=== PATIENT | female | born 1960 | race Caucasian/White ===

== ENCOUNTER 2019-04-12 06:33 | Observation (INO) | payer MEDICAID ==
[~2019-04-12] VITALS: Ht 160 cm; Wt 58.6 kg
[2019-04-12] MEDS ORDERED: NORVASC 10MG10 MG PO (06:42)
[2019-04-12] MEDS ORDERED: PAXIL 20MG20 MG PO (06:43)
[2019-04-12] MEDS ORDERED: APRESOLINE 25MG25 MG PO (06:43)
[2019-04-12 09:00] LABS: BASO # 0.1 (0.0-0.2); BASO % 0.5 % (0.0-2.0); EOS # 0.2 (0.0-0.7); EOS % 2.2 % (0-4.0); GRAN # 7.1 (1.4-6.5); GRAN % 77.2 % (42.2-75.2); HEMATOCRIT 42.3 % (37.0-47.0); HEMOGLOBIN 13.7 g/dl (12.5-16.0); LYMPH # 1.2 (1.2-3.4); LYMPH % 12.4 % (20.0-51.0); MEAN CELL VOLUME 91 fl (80.0-100.0); MEAN CORPUSCULAR HEMOGLOBIN 29 pg (27.0-31.0); MEAN CORPUSCULAR HGB CONC 32 g/dl (33.0-37.0); MEAN PLATELET VOLUME 9.5 fl (7.4-10.4); MONO # 0.7 (0.1-0.6); MONO % 7.5 % (1.7-9.3); PLATELET COUNT 306 K/mm3 (130-400); RED BLOOD COUNT 4.67 M/mm3 (4.10-5.30); REDCELL DISTRIBUTION WIDTH-CV 13.6 % (11.5-14.5)
[2019-04-12 09:16] LABS: ALANINE AMINOTRANSFERASE 18 U/L (9-52); ALBUMIN 4.3 gm/dL (3.5-5.0); ALKALINE PHOSPHATASE 159 U/L (50-136); ANION GAP 7 mmol/L (7-16); AST,SGOT 27 U/L (15-37); BILIRUBIN,TOTAL 0.5 mg/dL (0.0-1.0); BLOOD UREA NITROGEN 24 mg/dL (7-17); C-REACTIVE PROTEIN 0.8 mg/dL (0.0-0.9); CALCIUM 9.8 mg/dL (8.4-10.2); CARBON DIOXIDE 32 mmol/L (22-30); CHLORIDE 99 mmol/L (98-107); CREATININE, serum 0.57 (0.52-1.25); GLUCOSE 99 mg/dL (74-106); LIPASE 63 U/L (23-300); POTASSIUM 4.2 mmol/L (3.4-5.0); SODIUM 138 mmol/L (137-145); TOTAL PROTEIN 7.2 gm/dL (6.4-8.2)
[2019-04-12 09:30] LABS: TROPONIN-I < 0.012 ng/mL (0.000-0.035)
[2019-04-12 10:53] LABS: COLLECTION METHOD CLEAN CATCH
[2019-04-12 11:10] LABS: MUCOUS Present /lpf; PH 5 (5-8); SQUAMOUS EPITHELIAL 0-2 /hpf; URINE APPEARANCE Hazy; URINE BACTERIA Rare /hpf; URINE BILIRUBIN Negative (NEGATIVE); URINE BLOOD Negative (NEGATIVE); URINE COLOR Yellow; URINE GLUCOSE Negative (NEGATIVE); URINE KETONE Negative (NEGATIVE); URINE LEUKOCYTE ESTERASE Trace (NEGATIVE); URINE NITRATE Negative (NEGATIVE); URINE PROTEIN(semi-quant) Negative (NEGATIVE); URINE RBC None Seen /hpf; URINE UROBILINOGEN Negative (NEGATIVE)
--- NOTE | 2019-04-12 14:30 | NUR ---
Patient arrived to the floor at this time. Patient is resting in bed. States that her pain is the thing that is bothering her the most. She is A&Ox4. Her is at the bedside.
[2019-04-12] MEDS ORDERED: IPRATROPIUM BROM3 M1 IH (14:32)
[2019-04-12] MEDS ORDERED: PROVENTIL0.09 MG/A1 IH (14:33)
[2019-04-12] MEDS ORDERED: COMBIRESP IH (14:34)
[2019-04-12] MEDS ORDERED: ALBUTEROL0.83 MG/ML IH (14:42)
[2019-04-12] MEDS ORDERED: FLOVENT 110MCG7.9 GM IH (14:44)
[2019-04-12] MEDS ORDERED: RT ADVAIR 228 DISKUS IH (14:46)
--- NOTE | 2019-04-12 15:05 | NUR ---
Patient stated that her pain was at a 10/10. PRN pain medication was provided.
[2019-04-12 16:28] VITALS: BP 116/73; PULSE 86; TEMP 98.3
[2019-04-12 16:31] VITALS: BP 116/83; PULSE 91; TEMP 98.3
--- NOTE | 2019-04-12 16:45 | NUR ---
Med rec and admission assessment completed at bedside by Express unit nurse BARRY Mcfadden.
--- NOTE | 2019-04-12 17:27 | NUR ---
Patient has had a good day since she arrived. She has been in pain since she arrived with minimal relief on PRN Morphine. Will continue to monitor and reassess pain. Currently rated at a 10/10 PRN morphine was given.
--- NOTE | 2019-04-12 18:19 | NUR ---
Patient reported anxiety that she said was making her pain and trouble breathing work. Dr. Lipscomb was called to request PRN anxiety medication. He prescribed a one time dose of 0.5 Ativan. Patient is aware that the dose she was given is a one time dose this evening. No further needs were expressed from the patient. Call light is within reach.
[2019-04-12 19:32] VITALS: BP 111/71; PULSE 88; TEMP 98.4
--- NOTE | 2019-04-12 20:05 | NUR ---
Patient assessed at this time. Alert and oriented x 4, and able to make needs known. Complains of level 10 pain to back, described as squeezing/vise. Given PRN Morphine as requested for pain. Double lumen PICC to RUE. Both lumens flushed. Dressing to area is CDI. Reports SOB and dyspnea on exertion. Continues on oxygen at 2 L/min via NC. LS CTA. Respirations even and unlabored at rest. HRR. Telemetry in place: sinus. Capillary refill less than 3 seconds. Non-tenting skin turgor. BSAx4. Abdomen soft and non-tender. No edema. Patient anxious. Reports Ativan helped very little. Resting in bed with call light within reach.
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
--- NOTE | 2019-04-13 01:10 | NUR ---
Patient complaining of level 10 pain to back. Given PRN [place] per orders.
--- NOTE | 2019-04-13 01:50 | NUR ---
Patient continues to have pain to back, rated as a 10. Given 2nd dose of [place] at this time. Also complaining of anxiety. Given PRN Ativan as requested. Assisted to bathroom and back to bed. Voices no further questions, needs, or concerns. Resting in bed with call light within reach.
[2019-04-13 02:49] VITALS: BP 100/58; PULSE 85; TEMP 98.5
--- NOTE | 2019-04-13 04:50 | NUR ---
Patient continues to have anxiety that someone is watching her from outside, saying that she is seeing shadows through the blinds. Allowed blinds to be open for short time so that she could see we were on the 3rd floor and no one was looking in her window. Called shortly afterwards to have blinds put back down, stating that she'd rather not see the person's face if someone was out there. Reports she feels like Ativan is helping some, as she is not as anxious as she usually is. Also reports some decrease in pain. Continues on oxygen at 2 L/min via NC. Has been awake most of the night. Call light is within reach.
--- NOTE | 2019-04-13 07:08 | NUR ---
Report given to day shift nurse.
[2019-04-13 08:00] VITALS: BP 132/53; PULSE 88; TEMP 98.2
--- NOTE | 2019-04-13 08:00 | NUR ---
Assessment complete. Patient is lying in bed. She stated her anxiety was making her feel like she could not breath and that her pain was back. PRN Ativan was administered for her. Her vitals were stable upon assessment. PICC line flushed and belem well. Her call light is within reach.
[2019-04-13 08:12] LABS: BASO % 0.1 % (0.0-2.0); GRAN # 5.8 (1.4-6.5); GRAN % 83.3 % (42.2-75.2); HEMATOCRIT 37.8 % (37.0-47.0); HEMOGLOBIN 12.4 g/dl (12.5-16.0); LYMPH # 0.8 (1.2-3.4); MEAN CELL VOLUME 90 fl (80.0-100.0); MEAN CORPUSCULAR HEMOGLOBIN 30 pg (27.0-31.0); MEAN CORPUSCULAR HGB CONC 33 g/dl (33.0-37.0); MEAN PLATELET VOLUME 9.8 fl (7.4-10.4); MONO # 0.3 (0.1-0.6); MONO % 4.5 % (1.7-9.3); PLATELET COUNT 316 K/mm3 (130-400); RED BLOOD COUNT 4.21 M/mm3 (4.10-5.30); REDCELL DISTRIBUTION WIDTH-CV 13.2 % (11.5-14.5)
[2019-04-13 08:23] LABS: CALCIUM 9.5 mg/dL (8.4-10.2); CREATININE, serum 0.72 (0.52-1.25); POTASSIUM 4.7 mmol/L (3.4-5.0)
[2019-04-13] MEDS ORDERED: ZITHROMAX 250M250 MG PO (09:20)
[2019-04-13] MEDS ORDERED: LEXAPRO 10MG10 MG PO (09:21)
[2019-04-13] MEDS ORDERED: NORCO 325 MG-7.1 TAB PO (09:22)
[2019-04-13] MEDS ORDERED: PREDNISONE20 MG PO (09:22)
--- NOTE | 2019-04-13 09:54 | NUR ---
PRN ativan administered at this time per while rounding on the patient, as she stated her anxiety was so bad she felt as though something was squeezing her and that she could not breath.
--- NOTE | 2019-04-13 12:28 | NUR ---
Went to reassess patients pain after given a whole tab at 1110, she stated her pain was still at a 10. I offered her a half tab per the order and she refused it and wanted to wait the 4 hours so she can get a whole tab later.
[2019-04-13 13:14] VITALS: BP 118/63; PULSE 101; TEMP 98.2
--- NOTE | 2019-04-13 16:05 | NUR ---
Clocksmith attended clinical rounds with the team then met with patient to discuss discharge planning. Patient states she just moved to [place] last week from [place] to be with her fiance, Shadi Hills. Patient has [place] Medicaid and plans to reapply for Medicaid once she has lived in [place] for three months. Patient does not have primary care set up but is agreeable to have appointment set up at [facility]. Patient does not have Advance Directives. Patient uses walker at home and reports she uses home oxygen although she states she just uses a tank that was her fiance's family member's old tank. SW reported this to Hospitalist who ordered exercise ox. Per RT, patient qualifies for 2 liters of oxygen. CAROLEE met with patient and presented DME Choice form. Patient selected [facility]] and CAROLEE placed form on chart. CAROLEE faxed clinical information, order, and Financial Assistance Application to [facility] and contacted Neisha who advised oxygen would be delivered to patient's room this afternoon. CAROLEE contacted [facility] to set up appointment for patient on 04/19/2019. CAROLEE provided appointment date, time, and address to patient. Patient to discharge home today.
--- NOTE | 2019-04-13 16:48 | NUR ---
PATIENT ESCORTED OUT TO FRONT ENTRANCE AT THIS TIME. DISCHARGE INSTRUCTIONS WERE DISCUSSED.
[2019-04-14] MEDS ORDERED: FLEXERIL5 MG PO (13:59)
== END 2019-04-13 16:50 | disposition home or self-care (01) ==
LOC: COL.ER 06:33 → MEDICAL 11:29
PROVIDERS: Emergency Medicine; Nurse Practitioner Family; ADMIT Student in an Organized Health Care Education/Training Program
DX: J44.1 Chronic obstructive pulmonary disease with (acute) exacerbation (principal); J96.20 Acute and chronic respiratory failure, unspecified whether with hypoxia or hypercapnia; F41.9 Anxiety disorder, unspecified; G89.29 Other chronic pain; M54.9 Dorsalgia, unspecified; Z99.81 Dependence on supplemental oxygen; Z90.49 Acquired absence of other specified parts of digestive tract; G04.90 Encephalitis and encephalomyelitis, unspecified; Z87.891 Personal history of nicotine dependence
CPT/HCPCS: C1751; G0378; J2270; J2405; J2920; J2930

== ENCOUNTER 2019-04-14 10:10 | Emergency (ER) | payer MEDICAID ==
[~2019-04-14] VITALS: Ht 160 cm; Wt 61.8 kg
[~2019-04-14 10:10] MED LIST: ALBUTEROL0.83 MG/ML IH; APRESOLINE 25MG25 MG PO; COMBIRESP IH; FLOVENT 110MCG7.9 GM IH; IPRATROPIUM BROM3 M1 IH; LEXAPRO 10MG10 MG PO; NORCO 325 MG-7.1 TAB PO; NORVASC 10MG10 MG PO; PAXIL 20MG20 MG PO; PREDNISONE20 MG PO; PROVENTIL0.09 MG/A1 IH; RT ADVAIR 228 DISKUS IH; ZITHROMAX 250M250 MG PO
[2019-04-14 10:15] VITALS: TEMP 98
[2019-04-14 12:30] LABS: HEMOGLOBIN 13.7 g/dl (12.5-16.0); MEAN CELL VOLUME 90 fl (80.0-100.0); MEAN CORPUSCULAR HEMOGLOBIN 30 pg (27.0-31.0); MEAN CORPUSCULAR HGB CONC 33 g/dl (33.0-37.0); MEAN PLATELET VOLUME 9.7 fl (7.4-10.4); PLATELET COUNT 339 K/mm3 (130-400); RED BLOOD COUNT 4.57 M/mm3 (4.10-5.30); REDCELL DISTRIBUTION WIDTH-CV 13.5 % (11.5-14.5)
[2019-04-14 12:46] LABS: LYMPHOCYTE 12 % (20.0-51.0); NEUTROPHILS 86 % (42.0-75.2); PLATELET ESTIMATE NORMAL (NORMAL)
[2019-04-14 12:58] LABS: ALANINE AMINOTRANSFERASE 21 U/L (9-52); ALBUMIN 4.2 gm/dL (3.5-5.0); ALKALINE PHOSPHATASE 146 U/L (50-136); ANION GAP 8 mmol/L (7-16); AST,SGOT 26 U/L (15-37); BILIRUBIN,TOTAL 0.2 mg/dL (0.0-1.0); BLOOD UREA NITROGEN 30 mg/dL (7-17); CALCIUM 9.3 mg/dL (8.4-10.2); CARBON DIOXIDE 30 mmol/L (22-30); CHLORIDE 99 mmol/L (98-107); CREATININE, serum 0.47 (0.52-1.25); GLUCOSE 129 mg/dL (74-106); POTASSIUM 4.4 mmol/L (3.4-5.0); SODIUM 137 mmol/L (137-145); TOTAL PROTEIN 7.1 gm/dL (6.4-8.2)
[2019-04-14 13:06] LABS: C-REACTIVE PROTEIN < 0.5 mg/dL (0.0-0.9)
[2019-04-14] MEDS ORDERED: FLEXERIL5 MG PO (13:59)
[2019-04-14 14:38] VITALS: BP 142/96; PULSE 84
== END 2019-04-14 14:45 | disposition home or self-care (01) ==
LOC: COL.ER 10:10
PROVIDERS: Emergency Medicine
DX: J44.9 Chronic obstructive pulmonary disease, unspecified (principal); G89.29 Other chronic pain; M54.6 Pain in thoracic spine; Z79.51 Long term (current) use of inhaled steroids
CPT/HCPCS: J1170; J1885; J2060

== ENCOUNTER 2019-04-16 14:51 | Emergency (ER) | payer MEDICAID ==
[~2019-04-16] VITALS: Ht 162.6 cm; Wt 61.8 kg
[~2019-04-16 14:51] MED LIST changes: +FLEXERIL5 MG PO
[2019-04-16 15:00] VITALS: TEMP 98.1
[2019-04-16 17:50] VITALS: BP 115/72; PULSE 82
== END 2019-04-16 17:48 | disposition home or self-care (01) ==
LOC: COL.ER 14:51
DX: S22.050A Wedge compression fracture of T5-T6 vertebra, initial encounter for closed fracture (principal); Z79.51 Long term (current) use of inhaled steroids; X58.XXXA Exposure to other specified factors, initial encounter
CPT/HCPCS: J1885

== ENCOUNTER 2019-04-20 13:25 | Emergency (ER) | payer MEDICAID ==
[~2019-04-20] VITALS: Ht 162.6 cm; Wt 61.8 kg
[2019-04-20 13:31] VITALS: BP 141/95
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
[2019-04-20] MEDS ORDERED: FLEXERIL 1010 MG/TAB PO (16:20)
[2019-04-20 16:45] VITALS: PULSE 107; TEMP 98.3
== END 2019-04-20 16:45 | disposition home or self-care (01) ==
LOC: COL.ER 13:25
DX: F41.9 Anxiety disorder, unspecified (principal); G89.29 Other chronic pain; J44.9 Chronic obstructive pulmonary disease, unspecified; Z79.51 Long term (current) use of inhaled steroids
CPT/HCPCS: J1885

== ENCOUNTER 2019-04-21 14:01 | Emergency (ER) | payer MEDICAID ==
[~2019-04-21] VITALS: Ht 162.6 cm; Wt 61.8 kg
[~2019-04-21 14:01] MED LIST changes: +FLEXERIL 1010 MG/TAB PO
[2019-04-21 14:09] VITALS: TEMP 97.9
[2019-04-21 16:32] LABS: BASO % 0.5 % (0.0-2.0); EOS # 0.4 (0.0-0.7); GRAN # 3.6 (1.4-6.5); GRAN % 55.9 % (42.2-75.2); HEMATOCRIT 37.1 % (37.0-47.0); HEMOGLOBIN 11.8 g/dl (12.5-16.0); LYMPH # 1.8 (1.2-3.4); LYMPH % 28.1 % (20.0-51.0); MEAN CELL VOLUME 94 fl (80.0-100.0); MEAN CORPUSCULAR HEMOGLOBIN 30 pg (27.0-31.0); MEAN CORPUSCULAR HGB CONC 32 g/dl (33.0-37.0); MEAN PLATELET VOLUME 11.3 fl (7.4-10.4); MONO # 0.6 (0.1-0.6); MONO % 8.9 % (1.7-9.3); PLATELET COUNT 69 K/mm3 (130-400); RED BLOOD COUNT 3.97 M/mm3 (4.10-5.30); REDCELL DISTRIBUTION WIDTH-CV 13.9 % (11.5-14.5)
--- NOTE | 2019-04-21 16:32 | NUR ---
An APS reports was made, report number # [id number].
[2019-04-21 16:54] LABS: ALBUMIN 4.3 gm/dL (3.5-5.0); BILIRUBIN,TOTAL 0.8 mg/dL (0.0-1.0); C-REACTIVE PROTEIN 0.6 mg/dL (0.0-0.9); CALCIUM 9.3 mg/dL (8.4-10.2); CREATININE, serum 0.41 (0.52-1.25); POTASSIUM 4.1 mmol/L (3.4-5.0); TOTAL PROTEIN 6.9 gm/dL (6.4-8.2)
[2019-04-21 17:03] LABS: TROPONIN-I 0.016 ng/mL (0.000-0.035)
[2019-04-21 17:52] VITALS: BP 112/80; PULSE 80
== END 2019-04-21 18:00 | disposition home or self-care (01) ==
LOC: COL.ER 14:01
PROVIDERS: Emergency Medicine
DX: J44.9 Chronic obstructive pulmonary disease, unspecified (principal); R07.89 Other chest pain; M54.9 Dorsalgia, unspecified; G89.29 Other chronic pain; I10 Essential (primary) hypertension; F41.9 Anxiety disorder, unspecified; F32.9 Major depressive disorder, single episode, unspecified; Z87.891 Personal history of nicotine dependence; Z79.51 Long term (current) use of inhaled steroids
CPT/HCPCS: J1885

== ENCOUNTER 2019-04-23 08:44 | Emergency (ER) | payer MEDICAID ==
[~2019-04-23] VITALS: Ht 162.6 cm; Wt 61.8 kg
[2019-04-23 08:48] VITALS: TEMP 97.8
[2019-04-23 10:29] LABS: BASO % 0.2 % (0.0-2.0); EOS % 0.1 % (0-4.0); GRAN # 7.9 (1.4-6.5); GRAN % 90.9 % (42.2-75.2); HEMATOCRIT 40.6 % (37.0-47.0); HEMOGLOBIN 13.1 g/dl (12.5-16.0); LYMPH # 0.6 (1.2-3.4); LYMPH % 6.8 % (20.0-51.0); MEAN CELL VOLUME 90 fl (80.0-100.0); MEAN CORPUSCULAR HEMOGLOBIN 29 pg (27.0-31.0); MEAN CORPUSCULAR HGB CONC 32 g/dl (33.0-37.0); MEAN PLATELET VOLUME 9.1 fl (7.4-10.4); MONO # 0.2 (0.1-0.6); MONO % 1.7 % (1.7-9.3); RED BLOOD COUNT 4.49 M/mm3 (4.10-5.30); REDCELL DISTRIBUTION WIDTH-CV 13.9 % (11.5-14.5)
[2019-04-23 10:30] LABS: ALANINE AMINOTRANSFERASE 31 U/L (9-52); ALBUMIN 4.3 gm/dL (3.5-5.0); ALKALINE PHOSPHATASE 168 U/L (50-136); ANION GAP 9 mmol/L (7-16); AST,SGOT 20 U/L (15-37); BILIRUBIN,TOTAL 0.5 mg/dL (0.0-1.0); BLOOD UREA NITROGEN 19 mg/dL (7-17); CALCIUM 9.6 mg/dL (8.4-10.2); CARBON DIOXIDE 28 mmol/L (22-30); CHLORIDE 101 mmol/L (98-107); CREATININE, serum 0.45 (0.52-1.25); GLUCOSE 135 mg/dL (74-106); POTASSIUM 3.5 mmol/L (3.4-5.0); SODIUM 138 mmol/L (137-145); TOTAL PROTEIN 7.1 gm/dL (6.4-8.2)
[2019-04-23 10:32] LABS: C-REACTIVE PROTEIN < 0.5 mg/dL (0.0-0.9)
[2019-04-23 10:34] LABS: PLATELET COUNT 345 K/mm3 (130-400)
[2019-04-23 10:52] LABS: TROPONIN-I < 0.012 ng/mL (0.000-0.035)
[2019-04-23 11:05] LABS: ERYTHROCYTE SEDIMENTATION RATE 2 mm/hr (0-30)
[2019-04-23 12:35] VITALS: BP 109/76; PULSE 99
--- NOTE | 2019-04-23 15:15 | NUR ---
SW consulted for patient frequent visits. SW met with patient and in room. Patient gave verbal to talk in front of spouse. Patient reports that she is in pain and initially stated she was out of pain medications. Patient reports that she has not complied with seeing a PCP at [facility]. Patient claimed that she was unable to see the dr because she did not have any ID and they told her she would have to reschedule the appointment. stated that they ordered a birthcertificate that should be here tomorrow or wednesday in order to obtain and ID to be able to see the dr. SW question client on how she was able to obtain her RXS from the pharmacy without ID. Patient then stated that she does not know what she is going to do for pain and states she only has flexeril left and had to take two prior to coming to the ER. Patient indicated that she is also taking IBU and Tylenol as supplements. SW detailed patient recieved the following 04/13 HYDROcodone 28 tabs, 04/14 in er .5 Hydromorphine (2) and 60 ML Toradol. 04/16 Hydrocodone 5/325, 60 /2 ML Toradol, 10 MG Flexeril, 1 Tab [place], 04/20 5/325 Hydrocodone, Toradol, and [place], on 04/21 20 Tabs of Flexeril, 60MG Toradol, [place] Tab 5/325 and home with 7.5/325 Hydrocodone, and medications give today. Patient reports that she was out of the initial prescription in two and a half days. SW educated client that she will need to follow the medications as prescribed and do not over use the flexeril that she has remaining. SW educated patient on getting in with a primary care. Educated client on tracking of norcotics. Patient reports that she understood. Client reports thats she was having a hard time breathing. SW educated that it could be due to the additional medications in her system. SW prompted client on use or abuse, client denies having a substance use issues and stated that this pain only happened a few months ago. Nothing follows/
== END 2019-04-23 12:35 | disposition home or self-care (01) ==
LOC: COL.ER 08:44
PROVIDERS: Physician Assistant
DX: F41.9 Anxiety disorder, unspecified (principal); R06.00 Dyspnea, unspecified; I10 Essential (primary) hypertension; J44.9 Chronic obstructive pulmonary disease, unspecified; Z87.891 Personal history of nicotine dependence; Z79.51 Long term (current) use of inhaled steroids
CPT/HCPCS: J1885; J2060; Q9967

== ENCOUNTER 2019-04-28 11:55 | Emergency (ER) | payer MEDICAID ==
[~2019-04-28] VITALS: Ht 162.6 cm; Wt 61.8 kg
[2019-04-28 12:08] VITALS: TEMP 98.5
[2019-04-28] MEDS ORDERED: PREDNISONE20 MG PO (12:28)
[2019-04-28 13:00] VITALS: BP 119/81; PULSE 82
== END 2019-04-28 13:07 | disposition home or self-care (01) ==
LOC: COL.ER 11:55
DX: R06.00 Dyspnea, unspecified (principal); J44.9 Chronic obstructive pulmonary disease, unspecified; Z90.89 Acquired absence of other organs; Z87.891 Personal history of nicotine dependence; Z79.51 Long term (current) use of inhaled steroids
CPT/HCPCS: J7512

== ENCOUNTER 2019-04-30 08:50 | Emergency (ER) | payer MEDICAID ==
[~2019-04-30] VITALS: Ht 162.6 cm; Wt 61.8 kg
[2019-04-30 08:55] VITALS: TEMP 97
[2019-04-30 09:54] LABS: BASO % 0.3 % (0.0-2.0); EOS # 0.1 (0.0-0.7); EOS % 0.6 % (0-4.0); GRAN # 7.3 (1.4-6.5); GRAN % 74.5 % (42.2-75.2); HEMOGLOBIN 12.7 g/dl (12.5-16.0); LYMPH # 1.8 (1.2-3.4); LYMPH % 17.7 % (20.0-51.0); MEAN CELL VOLUME 91 fl (80.0-100.0); MEAN CORPUSCULAR HEMOGLOBIN 30 pg (27.0-31.0); MEAN CORPUSCULAR HGB CONC 33 g/dl (33.0-37.0); MEAN PLATELET VOLUME 8.8 fl (7.4-10.4); MONO # 0.7 (0.1-0.6); MONO % 6.7 % (1.7-9.3); PLATELET COUNT 307 K/mm3 (130-400); RED BLOOD COUNT 4.27 M/mm3 (4.10-5.30); REDCELL DISTRIBUTION WIDTH-CV 14.5 % (11.5-14.5)
[2019-04-30 10:14] LABS: ALANINE AMINOTRANSFERASE 29 U/L (9-52); ALBUMIN 4.5 gm/dL (3.5-5.0); ALKALINE PHOSPHATASE 167 U/L (50-136); ANION GAP 8 mmol/L (7-16); AST,SGOT 35 U/L (15-37); BILIRUBIN,TOTAL 0.5 mg/dL (0.0-1.0); BLOOD UREA NITROGEN 14 mg/dL (7-17); CARBON DIOXIDE 32 mmol/L (22-30); CHLORIDE 100 mmol/L (98-107); CREATININE, serum 0.41 (0.52-1.25); GLUCOSE 103 mg/dL (74-106); POTASSIUM 3.4 mmol/L (3.4-5.0); SODIUM 140 mmol/L (137-145); TOTAL PROTEIN 7.3 gm/dL (6.4-8.2)
[2019-04-30 10:26] LABS: TROPONIN-I < 0.012 ng/mL (0.000-0.035)
[2019-04-30] MEDS ORDERED: FLEXERIL 1010 MG/TAB PO (10:38)
[2019-04-30 10:55] VITALS: BP 136/85; PULSE 98
== END 2019-04-30 10:55 | disposition home or self-care (01) ==
LOC: COL.ER 08:50
PROVIDERS: Emergency Medicine
DX: R06.02 Shortness of breath (principal); J44.9 Chronic obstructive pulmonary disease, unspecified; F17.210 Nicotine dependence, cigarettes, uncomplicated; Z79.51 Long term (current) use of inhaled steroids
CPT/HCPCS: J1100; J1630; J1885; J7040

== ENCOUNTER 2019-05-02 10:26 | Emergency (ER) | payer MEDICAID ==
[~2019-05-02] VITALS: Ht 162.6 cm; Wt 61.8 kg
[2019-05-02 10:54] VITALS: BP 111/71; TEMP 98.4
[2019-05-02 12:30] VITALS: PULSE 98
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
== END 2019-05-02 13:00 | disposition home or self-care (01) ==
LOC: COL.ER 10:26
DX: F41.9 Anxiety disorder, unspecified (principal); G89.29 Other chronic pain; J44.9 Chronic obstructive pulmonary disease, unspecified; Z87.891 Personal history of nicotine dependence; Z90.89 Acquired absence of other organs; Z79.51 Long term (current) use of inhaled steroids

== ENCOUNTER 2019-05-03 10:04 | Emergency (ER) | payer MEDICAID ==
[~2019-05-03] VITALS: Ht 162.6 cm; Wt 61.8 kg
--- NOTE | 2019-05-03 10:26 | NUR ---
APS report filed this day, 05/03. Report # [id number]
--- NOTE | 2019-05-03 10:30 | NUR ---
OPTICS ENGINEER student attempted to contact Rhoda from [facility] about the patient and the APS report, left message.
[2019-05-03 12:14] VITALS: BP 88/58; PULSE 99; TEMP 98.4
--- NOTE | 2019-05-03 13:42 | NUR ---
The patient presented to the ED this day and declined a dialysis social worker consult.
== END 2019-05-03 12:35 | disposition home or self-care (01) ==
LOC: COL.ER 10:04
DX: F41.9 Anxiety disorder, unspecified (principal); J44.9 Chronic obstructive pulmonary disease, unspecified; I50.9 Heart failure, unspecified; G89.29 Other chronic pain; M54.9 Dorsalgia, unspecified; Z87.891 Personal history of nicotine dependence; Z79.51 Long term (current) use of inhaled steroids

== ENCOUNTER 2019-05-04 08:06 | Emergency (ER) | payer MEDICAID ==
[~2019-05-04] VITALS: Ht 162.6 cm; Wt 61.8 kg
[2019-05-04 08:23] VITALS: BP 153/80; PULSE 124; TEMP 98.3
--- NOTE | 2019-05-04 13:33 | NUR ---
BETTIE tyson responded to a social service director consult for the patient. BETTIE tyson signed the patient up for the [facility] Team to receive any assistance needed. BETTIE tyson collaborated the above information with Fleet Maintenance Manager and Field Handyman.
== END 2019-05-04 10:05 | disposition home or self-care (01) ==
LOC: COL.ER 08:06
DX: F41.9 Anxiety disorder, unspecified (principal); G89.29 Other chronic pain; M54.9 Dorsalgia, unspecified; I10 Essential (primary) hypertension; J44.9 Chronic obstructive pulmonary disease, unspecified; F17.210 Nicotine dependence, cigarettes, uncomplicated; Z79.51 Long term (current) use of inhaled steroids

== ENCOUNTER 2019-05-11 09:26 | Emergency (ER) | payer MEDICAID ==
[~2019-05-11] VITALS: Ht 162.6 cm; Wt 61.8 kg
[2019-05-11 09:26] VITALS: TEMP 98.5
[2019-05-11] MEDS ORDERED: OMNICEF 300MG300 MG PO (09:36)
[2019-05-11] MEDS ORDERED: PREDNISONE20 MG PO (09:36)
[2019-05-11] MEDS ORDERED: DOXYCYCLINE 10100 MG PO (09:36)
[2019-05-11 11:43] LABS: BASO # 0.1 (0.0-0.2); BASO % 0.3 % (0.0-2.0); EOS # 0.5 (0.0-0.7); EOS % 3.5 % (0-4.0); GRAN # 12.5 (1.4-6.5); GRAN % 82.7 % (42.2-75.2); HEMOGLOBIN 11.1 g/dl (12.5-16.0); LYMPH # 0.6 (1.2-3.4); LYMPH % 4.2 % (20.0-51.0); MEAN CELL VOLUME 90 fl (80.0-100.0); MEAN CORPUSCULAR HEMOGLOBIN 30 pg (27.0-31.0); MEAN CORPUSCULAR HGB CONC 33 g/dl (33.0-37.0); MEAN PLATELET VOLUME 9.2 fl (7.4-10.4); MONO # 1.3 (0.1-0.6); MONO % 8.4 % (1.7-9.3); PLATELET COUNT 307 K/mm3 (130-400); RED BLOOD COUNT 3.74 M/mm3 (4.10-5.30); REDCELL DISTRIBUTION WIDTH-CV 14.6 % (11.5-14.5)
[2019-05-11 11:52] LABS: BILIRUBIN,TOTAL 0.6 mg/dL (0.0-1.0); CALCIUM 8.4 mg/dL (8.4-10.2); CREATININE, serum 0.4 (0.52-1.25); POTASSIUM 3.3 mmol/L (3.4-5.0); TOTAL PROTEIN 5.7 gm/dL (6.4-8.2)
[2019-05-11 12:09] LABS: HEMATOCRIT 33.6 % (37.0-47.0)
[2019-05-11 12:30] LABS: TROPONIN-I < 0.012 ng/mL (0.000-0.035)
[2019-05-11 12:31] LABS: ARTERIAL BLD GAS O2 SATURATION 93.4 % (92-100); ARTERIAL BLD GAS TCO2 CT 32.5; ARTERIAL BLOOD GAS BASE EXCESS 4.9 (-2-2); ARTERIAL BLOOD GAS HCO3 30.9 meq/L (22-26); ARTERIAL BLOOD GAS PCO2 52.4 mmHg (35-45); ARTERIAL BLOOD GAS PO2 64.6 mmHg (80-100); ARTERIAL BLOOD GAS pH 7.39 (7.35-7.45)
[2019-05-11 14:03] VITALS: BP 125/72; PULSE 117
--- NOTE | 2019-05-11 16:11 | NUR ---
CAROLEE filed an APS report # [id number].
== END 2019-05-11 14:03 | disposition home or self-care (01) ==
LOC: COL.ER 09:26
PROVIDERS: Emergency Medicine
DX: J44.1 Chronic obstructive pulmonary disease with (acute) exacerbation (principal); J18.9 Pneumonia, unspecified organism; F17.210 Nicotine dependence, cigarettes, uncomplicated; I10 Essential (primary) hypertension; F41.9 Anxiety disorder, unspecified; Z79.51 Long term (current) use of inhaled steroids; Z90.89 Acquired absence of other organs
CPT/HCPCS: A4216; J0696; J2930; J3475; J7030

== ENCOUNTER 2019-05-12 15:50 | Emergency (ER) | payer MEDICAID ==
[~2019-05-12] VITALS: Ht 162.6 cm; Wt 61.8 kg
[~2019-05-12 15:50] MED LIST changes: +DOXYCYCLINE 10100 MG PO; +OMNICEF 300MG300 MG PO
[2019-05-12 16:50] VITALS: BP 132/83
[2019-05-12 18:45] VITALS: PULSE 102; TEMP 98.4
== END 2019-05-12 18:50 | disposition home or self-care (01) ==
LOC: COL.ER 15:50
DX: J18.9 Pneumonia, unspecified organism (principal)

== ENCOUNTER 2019-05-16 10:45 | Emergency (ER) | payer MEDICAID ==
[~2019-05-16] VITALS: Ht 162.6 cm; Wt 61.8 kg
[2019-05-16 11:55] VITALS: BP 129/64; TEMP 97.5
[2019-05-16] MEDS ORDERED: VISTARIL100 MG PO (14:25)
[2019-05-16 14:32] VITALS: PULSE 95
== END 2019-05-16 14:35 | disposition home or self-care (01) ==
LOC: COL.ER 10:45
DX: F41.9 Anxiety disorder, unspecified (principal); R06.00 Dyspnea, unspecified; J44.9 Chronic obstructive pulmonary disease, unspecified; Z90.89 Acquired absence of other organs; Z87.891 Personal history of nicotine dependence; Z79.51 Long term (current) use of inhaled steroids

== ENCOUNTER 2019-05-21 07:27 | Emergency (ER) | payer SELFPAY ==
[~2019-05-21] VITALS: Ht 162.6 cm; Wt 61.8 kg
[~2019-05-21 07:27] MED LIST changes: +VISTARIL100 MG PO
[2019-05-21 07:42] VITALS: TEMP 98.3
[2019-05-21] MEDS ORDERED: MEDROL 4MG DOSPA4 MG PO (10:03)
[2019-05-21] MEDS ORDERED: LEVAQUIN 750MG750 M1 PO (10:03)
[2019-05-21 10:51] VITALS: BP 115/85; PULSE 85
== END 2019-05-21 10:51 | disposition home or self-care (01) ==
LOC: COL.ER 07:27
DX: J44.1 Chronic obstructive pulmonary disease with (acute) exacerbation (principal); J18.9 Pneumonia, unspecified organism; F41.9 Anxiety disorder, unspecified; Z79.51 Long term (current) use of inhaled steroids
CPT/HCPCS: J7512

== ENCOUNTER 2019-05-23 12:54 | Emergency (ER) | payer SELFPAY ==
[~2019-05-23] VITALS: Ht 162.6 cm; Wt 61.8 kg
[~2019-05-23 12:54] MED LIST changes: +LEVAQUIN 750MG750 M1 PO; +MEDROL 4MG DOSPA4 MG PO
[2019-05-23 12:58] VITALS: BP 127/94; TEMP 97.9
[2019-05-23 14:25] VITALS: PULSE 98
--- NOTE | 2019-05-23 15:31 | NUR ---
CONSOLE MANAGER student contacted the patient to assist with obtaining her marriage certificate from [place], [place]. The patient is to write a letter containing her name, her 's name, the month and year of the marriage with a self-addressed stamp envelope, and $1.50 money order. The address [facility] Marriage License [address], [place] [address]. The patient was agreeable to this. There are no additional needs at this time. [facility] Marriage License p# . There are no additional needs at this time.
== END 2019-05-23 14:25 | disposition home or self-care (01) ==
LOC: COL.ER 12:54
DX: J44.9 Chronic obstructive pulmonary disease, unspecified (principal); Z87.891 Personal history of nicotine dependence; Z79.51 Long term (current) use of inhaled steroids

== ENCOUNTER 2019-05-28 15:58 | Emergency (ER) | payer SELFPAY ==
[~2019-05-28] VITALS: Ht 162.6 cm; Wt 61.8 kg
[2019-05-28 16:08] VITALS: TEMP 97.2
[2019-05-28 18:12] LABS: C-REACTIVE PROTEIN 0.7 mg/dL (0.0-0.9); CALCIUM 9.7 mg/dL (8.4-10.2); CREATININE, serum 0.4 (0.52-1.25); POTASSIUM 3.8 mmol/L (3.4-5.0)
[2019-05-28 18:20] LABS: BASO # 0.1 (0.0-0.2); BASO % 0.8 % (0.0-2.0); EOS # 0.6 (0.0-0.7); EOS % 5.7 % (0-4.0); GRAN # 8.4 (1.4-6.5); GRAN % 76.6 % (42.2-75.2); HEMATOCRIT 40.1 % (37.0-47.0); HEMOGLOBIN 12.9 g/dl (12.5-16.0); LYMPH # 1.3 (1.2-3.4); LYMPH % 11.9 % (20.0-51.0); MEAN CELL VOLUME 92 fl (80.0-100.0); MEAN CORPUSCULAR HEMOGLOBIN 30 pg (27.0-31.0); MEAN CORPUSCULAR HGB CONC 32 g/dl (33.0-37.0); MEAN PLATELET VOLUME 8.6 fl (7.4-10.4); MONO # 0.5 (0.1-0.6); MONO % 4.5 % (1.7-9.3); PLATELET COUNT 484 K/mm3 (130-400); RED BLOOD COUNT 4.37 M/mm3 (4.10-5.30); REDCELL DISTRIBUTION WIDTH-CV 15.2 % (11.5-14.5)
[2019-05-28] MEDS ORDERED: PREDNISONE10 MG PO (19:29)
[2019-05-28 19:45] VITALS: BP 106/71; PULSE 96
== END 2019-05-28 19:44 | disposition home or self-care (01) ==
LOC: COL.ER 15:58
PROVIDERS: Emergency Medicine
DX: J44.1 Chronic obstructive pulmonary disease with (acute) exacerbation (principal); I10 Essential (primary) hypertension; F41.9 Anxiety disorder, unspecified; Z99.81 Dependence on supplemental oxygen; Z79.51 Long term (current) use of inhaled steroids
CPT/HCPCS: J1885; J7512

== ENCOUNTER 2019-06-03 14:00 | Emergency (ER) | payer SELFPAY ==
[~2019-06-03] VITALS: Ht 162.6 cm; Wt 61.8 kg
[~2019-06-03 14:00] MED LIST changes: +PREDNISONE10 MG PO
[2019-06-03 14:17] VITALS: TEMP 98.7
[2019-06-03] MEDS ORDERED: NORCO 325 MG-51 TAB PO (16:32)
[2019-06-03] MEDS ORDERED: FLEXERIL 1010 MG/TAB PO (16:32)
[2019-06-03 16:58] VITALS: BP 128/92
[2019-06-03 17:18] VITALS: PULSE 100
== END 2019-06-03 17:04 | disposition home or self-care (01) ==
LOC: COL.ER 14:00
DX: S92.351A Displaced fracture of fifth metatarsal bone, right foot, initial encounter for closed fracture (principal); M54.6 Pain in thoracic spine; G89.29 Other chronic pain; J44.9 Chronic obstructive pulmonary disease, unspecified; I10 Essential (primary) hypertension; F41.9 Anxiety disorder, unspecified; R40.2412 Glasgow coma scale score 13-15, at arrival to emergency department; Z79.51 Long term (current) use of inhaled steroids; Z79.52 Long term (current) use of systemic steroids; Z87.891 Personal history of nicotine dependence; W01.0XXA Fall on same level from slipping, tripping and stumbling without subsequent striking against object, initial encounter; Y92.009 Unspecified place in unspecified non-institutional (private) residence as the place of occurrence of the external cause
CPT/HCPCS: J1885

== ENCOUNTER 2019-06-11 04:03 | Emergency (ER) | payer SELFPAY ==
[~2019-06-11] VITALS: Ht 162.6 cm; Wt 61.8 kg
[~2019-06-11 04:03] MED LIST changes: +NORCO 325 MG-51 TAB PO
[2019-06-11 06:17] VITALS: TEMP 98
[2019-06-11] MEDS ORDERED: ATARAX 25MG25 MG/TAB PO (07:25)
[2019-06-11] MEDS ORDERED: NORVASC 10MG10 MG PO (08:01)
[2019-06-11 09:00] VITALS: BP 160/103; PULSE 126
[2019-06-11] MEDS ORDERED: MEDROL 4MG DOSPA4 MG PO ×2 (20:12)
[2019-06-12] MEDS ORDERED: ATIVAN 0.50.5 MG/TAB PO ×2 (16:22)
[2019-06-17] MEDS ORDERED: DOXYCYCLINE 10100 MG PO (10:03)
[2019-06-17] MEDS ORDERED: PERFOROMIS20 MCG/2 M IH (10:04)
[2019-06-17] MEDS ORDERED: LEXAPRO 10MG10 MG PO (10:04)
[2019-06-17] MEDS ORDERED: KLONOPIN 0.5MG0.5 MG PO (10:04)
[2019-06-17] MEDS ORDERED: PREDNISONE20 MG PO (10:09)
== END 2019-06-11 09:03 | disposition home or self-care (01) ==
LOC: COL.ER 04:03
DX: J44.9 Chronic obstructive pulmonary disease, unspecified (principal); F41.9 Anxiety disorder, unspecified; R11.2 Nausea with vomiting, unspecified; Z79.51 Long term (current) use of inhaled steroids
CPT/HCPCS: J1200; J1790; J8540

== ENCOUNTER 2019-06-11 16:02 | Emergency (ER) | payer SELFPAY ==
[~2019-06-11] VITALS: Ht 162.6 cm; Wt 61.8 kg
[~2019-06-11 16:02] MED LIST changes: +ATARAX 25MG25 MG/TAB PO
[2019-06-11 16:07] VITALS: TEMP 98.4
[2019-06-11 16:57] LABS: ARTERIAL BLD GAS O2 SATURATION 97.5 % (92-100); ARTERIAL BLD GAS TCO2 CT 22.9; ARTERIAL BLOOD GAS BASE EXCESS -2.3 (-2-2); ARTERIAL BLOOD GAS HCO3 21.8 meq/L (22-26); ARTERIAL BLOOD GAS PCO2 35.4 mmHg (35-45); ARTERIAL BLOOD GAS PO2 86.6 mmHg (80-100); ARTERIAL BLOOD GAS pH 7.41 (7.35-7.45)
[2019-06-11 17:14] LABS: HEMOGLOBIN 11.6 g/dl (12.5-16.0); MEAN CELL VOLUME 91 fl (80.0-100.0); MEAN CORPUSCULAR HEMOGLOBIN 29 pg (27.0-31.0); MEAN CORPUSCULAR HGB CONC 32 g/dl (33.0-37.0); MEAN PLATELET VOLUME 9.5 fl (7.4-10.4); PLATELET COUNT 361 K/mm3 (130-400); REDCELL DISTRIBUTION WIDTH-CV 14.6 % (11.5-14.5)
[2019-06-11 17:17] LABS: ALANINE AMINOTRANSFERASE 19 U/L (9-52); ALBUMIN 4.5 gm/dL (3.5-5.0); ALKALINE PHOSPHATASE 102 U/L (50-136); ANION GAP 11 mmol/L (7-16); AST,SGOT 27 U/L (15-37); BILIRUBIN,TOTAL 0.7 mg/dL (0.0-1.0); BLOOD UREA NITROGEN 15 mg/dL (7-17); CALCIUM 9.6 mg/dL (8.4-10.2); CARBON DIOXIDE 27 mmol/L (22-30); CHLORIDE 98 mmol/L (98-107); CREATININE, serum 0.55 (0.52-1.25); GLUCOSE 134 mg/dL (74-106); POTASSIUM 3.4 mmol/L (3.4-5.0); SODIUM 136 mmol/L (137-145); TOTAL PROTEIN 7.3 gm/dL (6.4-8.2)
[2019-06-11 17:18] LABS: HEMATOCRIT 36.5 % (37.0-47.0)
[2019-06-11 17:28] LABS: TROPONIN-I < 0.012 ng/mL (0.000-0.035)
[2019-06-11 17:41] LABS: BAND 3 % (0-10); LYMPHOCYTE 1 % (20.0-51.0); NEUTROPHILS 96 % (42.0-75.2); PLATELET ESTIMATE NORMAL (NORMAL)
[2019-06-11 17:46] VITALS: BP 115/97
[2019-06-11] MEDS ORDERED: MEDROL 4MG DOSPA4 MG PO ×2 (20:12)
[2019-06-11 21:24] VITALS: PULSE 117
[2019-06-12] MEDS ORDERED: ATIVAN 0.50.5 MG/TAB PO ×2 (16:22)
[2019-06-17] MEDS ORDERED: DOXYCYCLINE 10100 MG PO (10:03)
[2019-06-17] MEDS ORDERED: LEXAPRO 10MG10 MG PO (10:04)
[2019-06-17] MEDS ORDERED: PERFOROMIS20 MCG/2 M IH (10:04)
[2019-06-17] MEDS ORDERED: KLONOPIN 0.5MG0.5 MG PO (10:04)
[2019-06-17] MEDS ORDERED: PREDNISONE20 MG PO (10:09)
== END 2019-06-11 21:24 | disposition home or self-care (01) ==
LOC: COL.ER 16:02
PROVIDERS: Emergency Medicine
DX: T48.6X1A Poisoning by antiasthmatics, accidental (unintentional), initial encounter (principal); F41.9 Anxiety disorder, unspecified; J96.10 Chronic respiratory failure, unspecified whether with hypoxia or hypercapnia; J44.9 Chronic obstructive pulmonary disease, unspecified; Z79.51 Long term (current) use of inhaled steroids; Z87.891 Personal history of nicotine dependence

== ENCOUNTER 2019-06-12 15:16 | Emergency (ER) | payer SELFPAY ==
[~2019-06-12] VITALS: Ht 162.6 cm; Wt 61.8 kg
[2019-06-12 15:31] VITALS: TEMP 98.1
[2019-06-12 15:54] VITALS: BP 139/85
[2019-06-12] MEDS ORDERED: ATIVAN 0.50.5 MG/TAB PO ×2 (16:22)
[2019-06-12 16:32] VITALS: PULSE 128
[2019-06-17] MEDS ORDERED: DOXYCYCLINE 10100 MG PO (10:03)
[2019-06-17] MEDS ORDERED: KLONOPIN 0.5MG0.5 MG PO (10:04)
[2019-06-17] MEDS ORDERED: LEXAPRO 10MG10 MG PO (10:04)
[2019-06-17] MEDS ORDERED: PERFOROMIS20 MCG/2 M IH (10:04)
[2019-06-17] MEDS ORDERED: PREDNISONE20 MG PO (10:09)
== END 2019-06-12 16:29 | disposition home or self-care (01) ==
LOC: COL.ER 15:16
DX: J44.1 Chronic obstructive pulmonary disease with (acute) exacerbation (principal); F41.9 Anxiety disorder, unspecified; Z79.51 Long term (current) use of inhaled steroids; Z79.52 Long term (current) use of systemic steroids

== ENCOUNTER 2019-06-14 12:32 | Emergency (ER) | payer SELFPAY ==
[~2019-06-14] VITALS: Ht 162.6 cm; Wt 61.8 kg
[~2019-06-14 12:32] MED LIST changes: +ATIVAN 0.50.5 MG/TAB PO
[2019-06-14 12:35] VITALS: TEMP 98.3
[2019-06-14 13:30] VITALS: BP 134/88; PULSE 116
[2019-06-17] MEDS ORDERED: DOXYCYCLINE 10100 MG PO (10:03)
[2019-06-17] MEDS ORDERED: KLONOPIN 0.5MG0.5 MG PO (10:04)
[2019-06-17] MEDS ORDERED: PERFOROMIS20 MCG/2 M IH (10:04)
[2019-06-17] MEDS ORDERED: LEXAPRO 10MG10 MG PO (10:04)
[2019-06-17] MEDS ORDERED: PREDNISONE20 MG PO (10:09)
== END 2019-06-14 14:10 | disposition left against medical advice (07) ==
LOC: COL.ER 12:32
DX: J44.9 Chronic obstructive pulmonary disease, unspecified (principal); F41.9 Anxiety disorder, unspecified; Z79.51 Long term (current) use of inhaled steroids; Z87.891 Personal history of nicotine dependence
CPT/HCPCS: J2930

== ENCOUNTER 2019-06-29 10:32 | Emergency (ER) | payer MEDICAID ==
[~2019-06-29] VITALS: Ht 162.6 cm; Wt 61.8 kg
[~2019-06-29 10:32] MED LIST changes: +KLONOPIN 0.5MG0.5 MG PO; +PERFOROMIS20 MCG/2 M IH; +ROBAXIN 50500 MG/TAB PO
[2019-06-29 10:40] VITALS: TEMP 97.6
[2019-06-29 12:29] VITALS: BP 107/75; PULSE 110
--- NOTE | 2019-06-29 12:35 | NUR ---
I met with patient at social insurance specialist request in the ER. She is wanting more pain medication and states she promises she will not come back again if she could just get 10 more pills. She reports is going to [place] to be seen by her surgeon from past surgeries. She has advanced COPD and is oxygen dependent. She reports her activity is limited by her new back pain--not her COPD. When asked if she was interested in hospice, she replied "Why, do you think I'm dying--I'm not there--that is a terrible question to ask me". "I am not interested in hospice!" Then added "Just ask the doctor to give me 10 more pills" and I promise I won't come back". Explained to pt that the physician had already told her he would not give her more opioid pain medication. At that point she was no longer interested in ongoing discussion.
--- NOTE | 2019-06-29 15:48 | NUR ---
CAROLEE received social sciences chair consult in the ED for the patient due to needing goals of care. CAROLEE informed Zohra Ojeda pallative care nurse. CAROLEE and Zohra met with the patient. Please see pallative care note for further information. CAROLEE and Zohra collaborated the information with the ED team.
[2019-07-05] MEDS ORDERED: DOXYCYCLINE 10100 MG PO (14:32)
[2019-07-05] MEDS ORDERED: MACROBID 1100 MG/CAP PO (14:32)
== END 2019-06-29 12:36 | disposition home or self-care (01) ==
LOC: COL.ER 10:32
DX: J44.9 Chronic obstructive pulmonary disease, unspecified (principal); F41.9 Anxiety disorder, unspecified; I25.10 Atherosclerotic heart disease of native coronary artery without angina pectoris; F17.210 Nicotine dependence, cigarettes, uncomplicated; Z79.51 Long term (current) use of inhaled steroids
CPT/HCPCS: J1200; J1790

== ENCOUNTER 2019-07-02 13:35 | Emergency (ER) | payer MEDICAID ==
[~2019-07-02] VITALS: Ht 162.6 cm; Wt 61.8 kg
[2019-07-02 13:47] VITALS: BP 146/71; TEMP 98.7
[2019-07-02] MEDS ORDERED: ATARAX 25MG25 MG/TAB PO (14:04)
[2019-07-02] MEDS ORDERED: FLEXERIL 1010 MG/TAB PO (14:18)
[2019-07-02 15:09] VITALS: PULSE 102
[2019-07-05] MEDS ORDERED: DOXYCYCLINE 10100 MG PO (14:32)
[2019-07-05] MEDS ORDERED: MACROBID 1100 MG/CAP PO (14:32)
== END 2019-07-02 15:13 | disposition home or self-care (01) ==
LOC: COL.ER 13:35
DX: F41.9 Anxiety disorder, unspecified (principal); J44.9 Chronic obstructive pulmonary disease, unspecified; Z87.891 Personal history of nicotine dependence; Z79.51 Long term (current) use of inhaled steroids
CPT/HCPCS: J1200; J1790

== ENCOUNTER 2019-07-04 19:42 | Emergency (ER) | payer MEDICAID ==
[~2019-07-04] VITALS: Ht 162.6 cm; Wt 61.8 kg
[2019-07-04 19:44] VITALS: BP 114/88; PULSE 130; TEMP 98.2
[2019-07-05] MEDS ORDERED: DOXYCYCLINE 10100 MG PO (14:32)
[2019-07-05] MEDS ORDERED: MACROBID 1100 MG/CAP PO (14:32)
== END 2019-07-04 20:48 | disposition left against medical advice (07) ==
LOC: COL.ER 19:42
DX: J44.9 Chronic obstructive pulmonary disease, unspecified (principal); Z87.891 Personal history of nicotine dependence; Z79.51 Long term (current) use of inhaled steroids
CPT/HCPCS: J1200; J1790

== ENCOUNTER 2019-07-21 18:14 | Emergency (ER) | payer MEDICAID ==
[~2019-07-21] VITALS: Ht 162.6 cm; Wt 56.8 kg
[~2019-07-21 18:14] MED LIST changes: +MACROBID 1100 MG/CAP PO
[2019-07-21 18:19] VITALS: TEMP 98.5
[2019-07-21] MEDS ORDERED: KLONOPIN 1MG1 MG PO (18:23)
[2019-07-21 18:42] VITALS: BP 110/95; PULSE 113
[2019-07-21] MEDS ORDERED: ATARAX 25MG25 MG/TAB PO (18:52)
== END 2019-07-21 18:56 | disposition home or self-care (01) ==
LOC: COL.ER 18:14
DX: F41.9 Anxiety disorder, unspecified (principal); J44.9 Chronic obstructive pulmonary disease, unspecified; Z79.51 Long term (current) use of inhaled steroids
CPT/HCPCS: J7512

== ENCOUNTER 2019-07-22 18:18 | Emergency (ER) | payer MEDICAID ==
[~2019-07-22] VITALS: Ht 162.6 cm; Wt 56.8 kg
[~2019-07-22 18:18] MED LIST changes: +KLONOPIN 1MG1 MG PO
[2019-07-22 18:22] VITALS: TEMP 98.4
[2019-07-22 19:23] VITALS: BP 108/78; PULSE 109
== END 2019-07-22 19:20 | disposition home or self-care (01) ==
LOC: COL.ER 18:18
DX: J44.9 Chronic obstructive pulmonary disease, unspecified (principal); F41.9 Anxiety disorder, unspecified; Z79.51 Long term (current) use of inhaled steroids

== ENCOUNTER 2019-07-24 12:15 | Emergency (ER) | payer MEDICAID ==
[~2019-07-24] VITALS: Ht 162.6 cm; Wt 56.8 kg
[2019-07-24 12:17] VITALS: TEMP 98.8
[2019-07-24] MEDS ORDERED: XOPENEX 1.1.25 MG/3 IH (14:27)
[2019-07-24] MEDS ORDERED: PREDNISONE20 MG PO (14:32)
[2019-07-24 15:25] VITALS: BP 133/99; PULSE 103
[2019-07-25] MEDS ORDERED: SALONPAS1 EACH TP (18:01)
[2019-07-25] MEDS ORDERED: FLEXERIL 1010 MG/TAB PO (18:01)
== END 2019-07-24 15:30 | disposition home or self-care (01) ==
LOC: COL.ER 12:15
DX: F41.9 Anxiety disorder, unspecified (principal); J44.9 Chronic obstructive pulmonary disease, unspecified; I10 Essential (primary) hypertension; Z87.891 Personal history of nicotine dependence
CPT/HCPCS: J7512

== ENCOUNTER 2019-07-25 16:51 | Emergency (ER) | payer MEDICAID ==
[~2019-07-25] VITALS: Ht 162.6 cm; Wt 56.8 kg
[~2019-07-25 16:51] MED LIST changes: +XOPENEX 1.1.25 MG/3 IH
[2019-07-25 17:06] VITALS: BP 135/91; TEMP 98.2
[2019-07-25] MEDS ORDERED: FLEXERIL 1010 MG/TAB PO (18:01)
[2019-07-25] MEDS ORDERED: SALONPAS1 EACH TP (18:01)
[2019-07-25 18:08] VITALS: PULSE 102
== END 2019-07-25 18:09 | disposition home or self-care (01) ==
LOC: COL.ER 16:51
DX: M54.6 Pain in thoracic spine (principal); J44.9 Chronic obstructive pulmonary disease, unspecified; F41.9 Anxiety disorder, unspecified; F13.20 Sedative, hypnotic or anxiolytic dependence, uncomplicated; Z79.51 Long term (current) use of inhaled steroids; Z79.52 Long term (current) use of systemic steroids
CPT/HCPCS: J1790; J1885

== ENCOUNTER 2019-07-30 13:11 | Emergency (ER) | payer MEDICAID ==
[~2019-07-30] VITALS: Ht 152.4 cm; Wt 56.4 kg
[~2019-07-30 13:11] MED LIST changes: +SALONPAS1 EACH TP
[2019-07-30 13:18] VITALS: TEMP 98.2
[2019-07-30] MEDS ORDERED: PREDNISONE20 MG PO (13:56)
[2019-07-30] MEDS ORDERED: DOXYCYCLINE 10100 MG PO (13:56)
[2019-07-30 14:24] VITALS: BP 116/76; PULSE 119
== END 2019-07-30 14:18 | disposition home or self-care (01) ==
LOC: COL.ER 13:11
DX: R05 Cough (principal); J44.9 Chronic obstructive pulmonary disease, unspecified; F41.9 Anxiety disorder, unspecified; Z87.891 Personal history of nicotine dependence
CPT/HCPCS: J1885